=== PATIENT | female | born 1975 | race Caucasian/White ===

== ENCOUNTER 2022-08-19 00:06 | Emergency (ER) | payer SELFPAY ==
[2022-08-19] MEDS ORDERED: diphenhydrAMINE HCL 25 MG CAPSULE (FP) PO ONE ×2 (01:09→01:10)
[2022-08-19] MEDS ORDERED: FAMOTIDINE 20 MG TABLET PO ONE (01:09)
[2022-08-19] MEDS ORDERED: FAMOTIDINE 20 MG TABLET ONE (01:10)
[2022-08-19 02:18] VITALS: BP 112/71; PULSE 67; RESP 20; TEMP 98; BMI 29.2
[2022-08-19] MEDS ORDERED: DEXAMETHASONE 4 MG TABLET (FP) PO ONE (02:38)
[2022-08-19] MEDS ORDERED: DEXAMETHASONE SOD PHOSPHATE 10 MG/1 ML VIAL ONE (02:57)
== END 2022-08-19 03:17 | disposition home or self-care (01) ==
LOC: JER 00:06
DX: R21 Rash and other nonspecific skin eruption (principal)
CPT/HCPCS: 99283-25